=== PATIENT | female | born 1930 | race Caucasian/White ===

== ENCOUNTER → 2019-03-24 10:47 | Day surgery (SDC) | payer MEDICARE ==
[~2019-03-24 10:47] MED LIST: Acetaminophen TAB* 325 MG PO PRN; Buffered Lidocaine 1% SYRIN* 1 ML/SYRINGE INTRADERM ONE; Bupivacaine 0.25% SDV* 30 ML ONE; Lactated Ringers 1000 ML Bag* 1,000 ML IV SCH; Lidocaine 2% PF * 5 ML VIAL ONE; Midazolam* 1 MG/ML 2 ML VIAL (2 MG) ONE; Naloxone* 0.4 MG/ML 1 ML VIAL IV PRN; Propofol* 10 MG/ML 20 ML BTL ONE; fentaNYL* 50 MCG/ML 2 ML VIAL (100 MCG VIAL) IV PRN; oxyCODONE TAB* 5 MG TAB PO PRN
[2019-03-24 14:09] VITALS: BP 123/55
--- NOTE | 2019-03-24 22:16 | OP ---
DATE OF OPERATION: 03/24/19 - [facility] DATE OF : [birth year] SURGEON: Dav Velazquez MD. NURSE MONITORING: None. ANESTHESIOLOGIST: Dr. Bean. ANESTHESIA: Local MAC. PRE-OP DIAGNOSIS: Right carpal tunnel syndrome. POST-OP DIAGNOSES: Right carpal tunnel syndrome. OPERATIVE PROCEDURE: Right open carpal tunnel release. INDICATIONS: Ms. Duarte has very severe longstanding carpal tunnel syndrome. She is having a lot of nighttime symptoms and pain. We talked about treatment options. She wanted to proceed. ESTIMATED BLOOD LOSS: 2 mL. COMPLICATIONS: None. FINDINGS: See above and below. DESCRIPTION OF PROCEDURE: Ms. Duarte was seen in the preoperative holding area. The correct site, side, and procedure were identified. We came back to the operating room where the operative area was anesthetized with 0.25% plain Marcaine. The arm was prepped and draped in the usual fashion and a time-out was performed. I made a longitudinal incision in the proximal palm. Dissection was carried down through the subcutaneous tissue and palmar fascia. The transverse carpal ligament was released just off the radial aspect of the hook of the hamate. The release was completed distally. Proximally, I released the subcutaneous tissue and then placed a Domenico retractor, then released the remainder of the distal antebrachial fascia and transverse carpal ligament with a tenotomy scissors. At this point, the release was confirmed. Everything was looking good. The nerve was decompressed. It was very flattened. The wound was irrigated out. The skin was closed with 4-0 nylon suture. Soft dressings were applied and she was taken to the recovery room in stable condition. [id number]/[facility] #: [id number] MTDD
== END | disposition home or self-care (01) ==
LOC: OR 10:47
PROVIDERS: ATTEND Orthopaedic Surgery Hand Surgery
DX: G56.01 Carpal tunnel syndrome, right upper limb (principal); Z95.0 Presence of cardiac pacemaker; I10 Essential (primary) hypertension; I25.2 Old myocardial infarction; M19.90 Unspecified osteoarthritis, unspecified site; Z86.73 Personal history of transient ischemic attack (TIA), and cerebral infarction without residual deficits; Z79.01 Long term (current) use of anticoagulants; R73.01 Impaired fasting glucose; R01.1 Cardiac murmur, unspecified; Z86.711 Personal history of pulmonary embolism
CPT/HCPCS: J2250; J2704; J3490